=== PATIENT | male | born 1950 | race Caucasian/White ===

== ENCOUNTER → 2021-09-21 | Outpatient (REF) | payer MEDICARE, MEDICAID ==
[2021-09-21 13:11] LABS: HEMATOCRIT 47.4 % (42.0-52.0); HEMOGLOBIN 16.2 g/dl (13.5-17.5); MEAN CORPUSCULAR HEMOGLOBIN 30.9 pg (27.0-33.0); MEAN CORPUSCULAR HGB CONC 34.2 g/dl (32.0-36.5); MEAN CORPUSCULAR VOLUME 90.3 fl (80.0-96.0); PLATELET COUNT, AUTOMATED 239 10^3/uL (150-450); RED BLOOD COUNT 5.25 10^6/uL (4.30-6.10); WHITE BLOOD COUNT 4.9 10^3/uL (4.0-10.0)
[2021-09-21 13:16] LABS: APPEARANCE, URINE CLEAR (CLEAR); BACTERIA, URINE AUTO NEGATIVE (NEGATIVE); BILIRUBIN, URINE AUTO NEGATIVE (NEGATIVE); BLOOD, URINE BLOOD 1+ (NEGATIVE); COLOR, URINE YELLOW (YELLOW); GLUCOSE, URINE (UA) AUTO NEGATIVE (NEGATIVE); KETONE, URINE AUTO NEGATIVE (NEGATIVE); LEUKOCYTE ESTERASE, URINE AUTO NEGATIVE (NEGATIVE); MUCUS, URINE SMALL (NEGATIVE); NITRITE, URINE AUTO NEGATIVE (NEGATIVE); PROTEIN, URINE AUTO NEGATIVE (NEGATIVE); RBC, URINE AUTO 3 /HPF (0-3); SPECIFIC GRAVITY URINE AUTO 1.016 (1.002-1.035); SQUAMOUS EPITHELIAL CELL UR AU 0 /HPF (0-6); UROBILINOGEN, URINE AUTO 0.2 mg/dL (0.0-2.0); WBC, URINE AUTO 5 /HPF (0-3)
[2021-09-21 13:55] LABS: ALBUMIN 4.1 GM/DL (3.2-5.2); ALT/SGPT 26 U/L (12-78); BILIRUBIN,TOTAL 0.6 MG/DL (0.2-1.0); BLOOD UREA NITROGEN 18 MG/DL (7-18); CALCIUM LEVEL 9.6 MG/DL (8.8-10.2); CARBON DIOXIDE LEVEL 31 MEQ/L (21-32); CHLORIDE LEVEL 106 MEQ/L (98-107); CHOLESTEROL LEVEL 223 MG/DL (<200); CHOLESTEROL RISK RATIO 3.484 (<5); CREATININE FOR GFR 0.94 MG/DL (0.70-1.30); FERRITIN 234 NG/ML (26-388); FREE T4 1.13 NG/DL (0.76-1.46); GLOMERULAR FILTRATION RATE > 60.0 (>42); GLUCOSE, FASTING 98 MG/DL (70-100); HDL CHOLESTEROL 64 MG/DL (>40); IRON (FE) 120 UG/DL (65-175); LDL CHOLESTEROL 142 MG/DL (<100); NON-HDL-C 159 MG/DL; POTASSIUM SERUM 4.5 MEQ/L (3.5-5.1); SODIUM LEVEL 140 MEQ/L (136-145); TOTAL PROTEIN 7.5 GM/DL (6.4-8.2); TRIGLYCERIDES LEVEL 86 MG/DL (<150)
== END ==
LOC: M SFHCADAM 08:39
PROVIDERS: ATTEND Physician Assistant
DX: Z12.5 Encounter for screening for malignant neoplasm of prostate (principal); N40.1 Benign prostatic hyperplasia with lower urinary tract symptoms; R35.0 Frequency of micturition; Z13.220 Encounter for screening for lipoid disorders; R53.82 Chronic fatigue, unspecified; G89.29 Other chronic pain; D50.9 Iron deficiency anemia, unspecified; E78.00 Pure hypercholesterolemia, unspecified
CPT/HCPCS: 80053; 80061; 81001; 82728; 83540; 84439; 84443; 85027; 87086; G0103

== ENCOUNTER → 2021-10-05 | Outpatient (CLI) | payer MEDICARE, MEDICAID | LOC: M SOG 11:08 | PROVIDERS: ATTEND Physician Assistant | DX: M79.641 Pain in right hand (principal) ==

== ENCOUNTER → 2021-10-18 | Outpatient (REF) | payer MEDICARE, MEDICAID ==
[2021-10-18 20:11] LABS: APPEARANCE, URINE MANUAL TURBID (CLEAR); COLOR, URINE MANUAL BROWN (YELLOW)
[2021-10-18 20:26] LABS: BILIRUBIN, URINE MANUAL NEGATIVE (NEGATIVE); BLOOD URINE MANUAL POSITIVE (NEGATIVE); GLUCOSE, URINE (UA) MANUAL NEGATIVE (NEGATIVE); KETONE, URINE MANUAL NEGATIVE (NEGATIVE); LEUKOCYTE ESTERASE, URINE MAN TRACE (NEGATIVE); NITRITE, URINE MANUAL NEGATIVE (NEGATIVE); PH,URINE MAN 1.025 UNITS (5.0 - 7.0); PROTEIN, URINE MANUAL 3+ mg/dL (NEGATIVE); UROBILINOGEN, URINE MANUAL NORMAL (NORMAL)
[2021-10-18 20:27] LABS: RBC, URINE TNTC /hpf (0-3); SQUAMOUS EPITHELIAL CELL URINE 0 /hpf (SMALL AMT)
[2021-10-18 20:28] LABS: AMORPHOUS SEDIMENT, URINE SMALL AMOUNT (NEGATIVE); BACTERIA, URINE NONE SEEN; HYALINE CAST, URINE NONE SEEN /lpf (0-1)
== END ==
LOC: M SFHCADAM 15:07
PROVIDERS: ATTEND Urology
DX: R30.0 Dysuria (principal)

== ENCOUNTER → 2021-11-05 | Outpatient (CLI) | payer MEDICARE, MEDICAID ==
[~2021-11-05] MED LIST: ALEV220T22 PO; CELE1CAP9 PO; ZINC10LO4 MT
[2021-11-05 12:26] LABS: HEMATOCRIT 43.2 % (42.0-52.0); HEMOGLOBIN 14.6 g/dl (13.5-17.5); MEAN CORPUSCULAR HEMOGLOBIN 30.9 pg (27.0-33.0); MEAN CORPUSCULAR HGB CONC 33.8 g/dl (32.0-36.5); MEAN CORPUSCULAR VOLUME 91.3 fl (80.0-96.0); PLATELET COUNT, AUTOMATED 222 10^3/uL (150-450); RED BLOOD COUNT 4.73 10^6/uL (4.30-6.10); WHITE BLOOD COUNT 4.9 10^3/uL (4.0-10.0)
[2021-11-05 12:35] LABS: INR 0.9; PROTHROMBIN TIME 12.5 SECONDS (12.7-14.5)
[2021-11-05 12:48] LABS: ALBUMIN 3.8 GM/DL (3.2-5.2); ALT/SGPT 18 U/L (12-78); BILIRUBIN,TOTAL 0.3 MG/DL (0.2-1.0); BLOOD UREA NITROGEN 24 MG/DL (7-18); CALCIUM LEVEL 9.6 MG/DL (8.8-10.2); CARBON DIOXIDE LEVEL 27 MEQ/L (21-32); CHLORIDE LEVEL 108 MEQ/L (98-107); CREATININE FOR GFR 0.88 MG/DL (0.70-1.30); GLOMERULAR FILTRATION RATE > 60.0 (>42); GLUCOSE, FASTING 91 MG/DL (70-100); POTASSIUM SERUM 4.4 MEQ/L (3.5-5.1); SODIUM LEVEL 141 MEQ/L (136-145)
== END ==
LOC: M ADAMS 11:00
PROVIDERS: ATTEND Urology
DX: R39.9 Unspecified symptoms and signs involving the genitourinary system (principal); Z79.01 Long term (current) use of anticoagulants

== ENCOUNTER → 2021-11-10 | Outpatient (REF) | payer MEDICARE, MEDICAID ==
[2021-11-10 13:39] LABS: APPEARANCE, URINE CLEAR (CLEAR); BACTERIA, URINE AUTO NEGATIVE (NEGATIVE); BILIRUBIN, URINE AUTO NEGATIVE (NEGATIVE); BLOOD, URINE BLOOD 1+ (NEGATIVE); COLOR, URINE YELLOW (YELLOW); GLUCOSE, URINE (UA) AUTO NEGATIVE (NEGATIVE); KETONE, URINE AUTO NEGATIVE (NEGATIVE); LEUKOCYTE ESTERASE, URINE AUTO NEGATIVE (NEGATIVE); NITRITE, URINE AUTO NEGATIVE (NEGATIVE); PROTEIN, URINE AUTO NEGATIVE (NEGATIVE); RBC, URINE AUTO 13 /HPF (0-3); SQUAMOUS EPITHELIAL CELL UR AU 0 /HPF (0-6); UROBILINOGEN, URINE AUTO 0.2 mg/dL (0.0-2.0); WBC, URINE AUTO 5 /HPF (0-3)
== END ==
LOC: M SMT 12:38
PROVIDERS: ATTEND Urology
DX: R30.0 Dysuria (principal)

== ENCOUNTER → 2021-11-10 | Outpatient (CLI) | payer MEDICARE, MEDICAID ==
[~2021-11-10] MED LIST changes: +BACT800T5 PO; +HYDR-3713 PO; +OXYB5TAB10 PO; +PYRI1TAB5 PO
== END ==
LOC: M LABSMTC 09:54
PROVIDERS: ATTEND Anesthesiology
DX: Z01.812 Encounter for preprocedural laboratory examination (principal)

== ENCOUNTER → 2021-11-12 | Outpatient (CLI) | payer MEDICARE, MEDICAID | LOC: M ADAMS 07:53 | PROVIDERS: ATTEND Urology | DX: R39.9 Unspecified symptoms and signs involving the genitourinary system (principal) ==

== ENCOUNTER 2021-11-15 09:41 | Day surgery (SDC) | payer MEDICARE, MEDICAID ==
[~2021-11-15] VITALS: Ht 182.9 cm; Wt 86.6 kg
[~2021-11-15 09:41] MED LIST changes: -BACT800T5 PO; +CIPROFLOXACIN 400 MG in IV 1 EA IV ONE; -HYDR-3713 PO; +LIDOCAINE 1% MDV 20ML VIAL SQ PRN; +LR 1,000 ML IV ONE; -OXYB5TAB10 PO; -PYRI1TAB5 PO
[2021-11-15] MEDS ORDERED: MIDAZOLAM INJ 2MG/2ML VIAL (J2250 PER 1MG) As Ordered ONE (10:45)
[2021-11-15] MEDS ORDERED: dexameTHASONE 4 MG/ML 1ML VIAL (J1100 PER 1MG) As Ordered ONE (10:46)
[2021-11-15] MEDS ORDERED: fentaNYL 100 MCG/2 ML INJECTION As Ordered ONE (10:46)
[2021-11-15] MEDS ORDERED: propofoL 200 MG/20 ML VIAL As Ordered ONE (10:46)
[2021-11-15] MEDS ORDERED: ONDANSETRON 4MG/2ML VIAL As Ordered ONE (10:46)
[2021-11-15] MEDS ORDERED: LIDOCAINE 2% 100MG/5ML SDV (FOR ANES.) As Ordered ONE (10:46)
[2021-11-15] MEDS ORDERED: ACETAMINOPHEN 1000MG 100ML IV BTL (OFIRMEV) (J0131 PER 10MG) As Ordered ONE (11:28)
[2021-11-15] MEDS ORDERED: ROCURONIUM BROMIDE 50 MG/5 ML VIAL As Ordered ONE (11:46)
[2021-11-15] MEDS ORDERED: SUGAMMADEX SODIUM 500 MG/5 ML VIAL (BRIDION) As Ordered ONE (12:09)
[2021-11-15] MEDS ORDERED: OXYB5TAB10 PO (12:21)
[2021-11-15] MEDS ORDERED: BACT800T5 PO (12:21)
[2021-11-15] MEDS ORDERED: PYRI1TAB5 PO (12:21)
[2021-11-15] MEDS ORDERED: HYDR-3713 PO (12:21)
[2021-11-15] MEDS ORDERED: LR 1,000 ML IV SCH (12:40)
[2021-11-15] MEDS ORDERED: oxyCODONE 5MG TAB PO PRN (12:40)
[2021-11-15] MEDS ORDERED: fentaNYL 100 MCG/2 ML INJECTION IV PRN (12:40)
[2021-11-15] MEDS ORDERED: ONDANSETRON 4MG/2ML VIAL IV PRN (12:40)
[2021-11-15] MEDS: HYDROMORPHONE HCL 0.5 MG/ 0.5 ML SYRINGE (J1170 PER 1) IV PRN ×2 (12:47→12:52)
[2021-11-15 14:40] VITALS: BP 141/81
== END 2021-11-15 14:49 | disposition home or self-care (01) ==
LOC: M SDC 09:41
PROVIDERS: ATTEND Urology
DX: C67.9 Malignant neoplasm of bladder, unspecified (principal); Z87.891 Personal history of nicotine dependence; M54.50 Low back pain, unspecified
CPT/HCPCS: 52235; 88305; J0131; J0744; J1100; J1170; J2250; J2405; J3010

== ENCOUNTER → 2021-11-18 | Outpatient (CLI) | payer MEDICARE, MEDICAID ==
[~2021-11-18] MED LIST changes: +BACT800T5 PO; -CIPROFLOXACIN 400 MG in IV 1 EA IV ONE; +HYDR-3713 PO; +ISOVUE-370 76% 100ML VIAL As Ordered ONE; -LIDOCAINE 1% MDV 20ML VIAL SQ PRN; -LR 1,000 ML IV ONE; +OXYB5TAB10 PO; +PYRI1TAB5 PO
== END ==
LOC: M RAD 16:45
PROVIDERS: ATTEND Urology
DX: C67.8 Malignant neoplasm of overlapping sites of bladder (principal)
CPT/HCPCS: 74178; Q9967

== ENCOUNTER → 2022-01-05 | Outpatient (CLI) | payer MEDICARE, MEDICAID ==
[~2022-01-05] MED LIST changes: -ISOVUE-370 76% 100ML VIAL As Ordered ONE
[2022-01-05 17:08] LABS: HEMATOCRIT 44.8 % (42.0-52.0); HEMOGLOBIN 15.1 g/dl (13.5-17.5); MEAN CORPUSCULAR HEMOGLOBIN 30.4 pg (27.0-33.0); MEAN CORPUSCULAR HGB CONC 33.7 g/dl (32.0-36.5); MEAN CORPUSCULAR VOLUME 90.3 fl (80.0-96.0); PLATELET COUNT, AUTOMATED 249 10^3/uL (150-450); RED BLOOD COUNT 4.96 10^6/uL (4.30-6.10); WHITE BLOOD COUNT 4.8 10^3/uL (4.0-10.0)
[2022-01-05 17:28] LABS: ALBUMIN 3.7 GM/DL (3.2-5.2); ALT/SGPT 14 U/L (12-78); BILIRUBIN,TOTAL 0.2 MG/DL (0.2-1.0); BLOOD UREA NITROGEN 16 MG/DL (7-18); CALCIUM LEVEL 9.3 MG/DL (8.8-10.2); CARBON DIOXIDE LEVEL 26 MEQ/L (21-32); CHLORIDE LEVEL 105 MEQ/L (98-107); CREATININE FOR GFR 0.89 MG/DL (0.70-1.30); GLOMERULAR FILTRATION RATE > 60.0 (>42); GLUCOSE, FASTING 112 MG/DL (70-100); SODIUM LEVEL 140 MEQ/L (136-145); TOTAL PROTEIN 7.1 GM/DL (6.4-8.2)
[2022-01-05 19:02] LABS: APPEARANCE, URINE CLEAR (CLEAR); BACTERIA, URINE AUTO NEGATIVE (NEGATIVE); BILIRUBIN, URINE AUTO NEGATIVE (NEGATIVE); BLOOD, URINE BLOOD 1+ (NEGATIVE); COLOR, URINE YELLOW (YELLOW); GLUCOSE, URINE (UA) AUTO NEGATIVE (NEGATIVE); KETONE, URINE AUTO NEGATIVE (NEGATIVE); LEUKOCYTE ESTERASE, URINE AUTO TRACE (NEGATIVE); MUCUS, URINE SMALL (NEGATIVE); NITRITE, URINE AUTO NEGATIVE (NEGATIVE); PROTEIN, URINE AUTO NEGATIVE (NEGATIVE); RBC, URINE AUTO 2 /HPF (0-3); SPECIFIC GRAVITY URINE AUTO 1.013 (1.002-1.035); SQUAMOUS EPITHELIAL CELL UR AU 0 /HPF (0-6); UROBILINOGEN, URINE AUTO 0.2 mg/dL (0.0-2.0); WBC, URINE AUTO 6 /HPF (0-3)
== END ==
LOC: M ADAMS 13:12
PROVIDERS: ATTEND Urology
DX: C67.9 Malignant neoplasm of bladder, unspecified (principal); Z79.899 Other long term (current) drug therapy

== ENCOUNTER → 2022-01-25 | Outpatient (REF) | payer MEDICARE, MEDICAID ==
[2022-01-25 12:43] LABS: APPEARANCE, URINE HAZY (CLEAR); BACTERIA, URINE AUTO NEGATIVE (NEGATIVE); BILIRUBIN, URINE AUTO NEGATIVE (NEGATIVE); BLOOD, URINE BLOOD 1+ (NEGATIVE); COLOR, URINE YELLOW (YELLOW); GLUCOSE, URINE (UA) AUTO NEGATIVE (NEGATIVE); KETONE, URINE AUTO TRACE mg/dL (NEGATIVE); LEUKOCYTE ESTERASE, URINE AUTO 1+ (NEGATIVE); MUCUS, URINE SMALL (NEGATIVE); NITRITE, URINE AUTO NEGATIVE (NEGATIVE); PROTEIN, URINE AUTO 1+ mg/dL (NEGATIVE); RBC, URINE AUTO 20 /HPF (0-3); SPECIFIC GRAVITY URINE AUTO 1.023 (1.002-1.035); SQUAMOUS EPITHELIAL CELL UR AU 0 /HPF (0-6); UROBILINOGEN, URINE AUTO 0.2 mg/dL (0.0-2.0); WBC, URINE AUTO 19 /HPF (0-3)
== END ==
LOC: M SFHCADAM 09:27
PROVIDERS: ATTEND Urology
DX: C67.9 Malignant neoplasm of bladder, unspecified (principal)

== ENCOUNTER → 2022-01-31 | Outpatient (REF) | payer MEDICARE, MEDICAID ==
[2022-01-31 13:56] LABS: APPEARANCE, URINE CLEAR (CLEAR); BACTERIA, URINE AUTO 1+ (NEGATIVE); BILIRUBIN, URINE AUTO NEGATIVE (NEGATIVE); BLOOD, URINE BLOOD 1+ (NEGATIVE); COLOR, URINE YELLOW (YELLOW); GLUCOSE, URINE (UA) AUTO NEGATIVE (NEGATIVE); KETONE, URINE AUTO NEGATIVE (NEGATIVE); LEUKOCYTE ESTERASE, URINE AUTO NEGATIVE (NEGATIVE); MUCUS, URINE SMALL (NEGATIVE); NITRITE, URINE AUTO NEGATIVE (NEGATIVE); PROTEIN, URINE AUTO NEGATIVE (NEGATIVE); RBC, URINE AUTO 8 /HPF (0-3); SPECIFIC GRAVITY URINE AUTO 1.019 (1.002-1.035); SQUAMOUS EPITHELIAL CELL UR AU 0 /HPF (0-6); TRANSITIONAL EPITHELIAL AUTO <1 /HPF; UROBILINOGEN, URINE AUTO 0.2 mg/dL (0.0-2.0); WBC, URINE AUTO 10 /HPF (0-3)
== END ==
LOC: M SFHCADAM 08:19
PROVIDERS: ATTEND Urology
DX: C67.9 Malignant neoplasm of bladder, unspecified (principal); Z79.899 Other long term (current) drug therapy

== ENCOUNTER → 2022-02-02 | Outpatient (CLI) | payer MEDICARE, MEDICAID | LOC: M RAD 01-10 08:31 | PROVIDERS: ATTEND Urology | DX: N28.9 Disorder of kidney and ureter, unspecified (principal); R93.429 Abnormal radiologic findings on diagnostic imaging of unspecified kidney ==

== ENCOUNTER → 2022-02-09 | Outpatient (REF) | payer MEDICARE, MEDICAID ==
[2022-02-09 17:30] LABS: APPEARANCE, URINE HAZY (CLEAR); BACTERIA, URINE AUTO NEGATIVE (NEGATIVE); BILIRUBIN, URINE AUTO NEGATIVE (NEGATIVE); BLOOD, URINE BLOOD 3+ (NEGATIVE); COLOR, URINE YELLOW (YELLOW); GLUCOSE, URINE (UA) AUTO NEGATIVE (NEGATIVE); KETONE, URINE AUTO TRACE mg/dL (NEGATIVE); LEUKOCYTE ESTERASE, URINE AUTO TRACE (NEGATIVE); MUCUS, URINE SMALL (NEGATIVE); NITRITE, URINE AUTO NEGATIVE (NEGATIVE); PROTEIN, URINE AUTO 1+ mg/dL (NEGATIVE); RBC, URINE AUTO 88 /HPF (0-3); SPECIFIC GRAVITY URINE AUTO 1.017 (1.002-1.035); SQUAMOUS EPITHELIAL CELL UR AU 0 /HPF (0-6); UROBILINOGEN, URINE AUTO 0.2 mg/dL (0.0-2.0); WBC, URINE AUTO 14 /HPF (0-3)
== END ==
LOC: M SMT 16:35
PROVIDERS: ATTEND Urology
DX: C67.9 Malignant neoplasm of bladder, unspecified (principal)

== ENCOUNTER → 2022-02-14 | Outpatient (REF) | payer MEDICARE, MEDICAID ==
[2022-02-14 13:41] LABS: APPEARANCE, URINE HAZY (CLEAR); BACTERIA, URINE AUTO NEGATIVE (NEGATIVE); BILIRUBIN, URINE AUTO NEGATIVE (NEGATIVE); BLOOD, URINE BLOOD 2+ (NEGATIVE); COLOR, URINE YELLOW (YELLOW); GLUCOSE, URINE (UA) AUTO NEGATIVE (NEGATIVE); KETONE, URINE AUTO TRACE mg/dL (NEGATIVE); LEUKOCYTE ESTERASE, URINE AUTO 1+ (NEGATIVE); MUCUS, URINE SMALL (NEGATIVE); NITRITE, URINE AUTO NEGATIVE (NEGATIVE); PROTEIN, URINE AUTO 1+ mg/dL (NEGATIVE); RBC, URINE AUTO 12 /HPF (0-3); SPECIFIC GRAVITY URINE AUTO 1.018 (1.002-1.035); SQUAMOUS EPITHELIAL CELL UR AU 0 /HPF (0-6); UROBILINOGEN, URINE AUTO 0.2 mg/dL (0.0-2.0); WBC, URINE AUTO 30 /HPF (0-3)
== END ==
LOC: M SFHCADAM 08:55
PROVIDERS: ATTEND Urology
DX: C67.9 Malignant neoplasm of bladder, unspecified (principal)

== ENCOUNTER → 2022-02-21 | Outpatient (REF) | payer MEDICARE, MEDICAID ==
[2022-02-22 13:22] LABS: APPEARANCE, URINE HAZY (CLEAR); BACTERIA, URINE AUTO NEGATIVE (NEGATIVE); BILIRUBIN, URINE AUTO NEGATIVE (NEGATIVE); BLOOD, URINE BLOOD NEGATIVE (NEGATIVE); COLOR, URINE YELLOW (YELLOW); GLUCOSE, URINE (UA) AUTO NEGATIVE (NEGATIVE); KETONE, URINE AUTO NEGATIVE (NEGATIVE); LEUKOCYTE ESTERASE, URINE AUTO 1+ (NEGATIVE); MUCUS, URINE SMALL (NEGATIVE); NITRITE, URINE AUTO NEGATIVE (NEGATIVE); PROTEIN, URINE AUTO NEGATIVE (NEGATIVE); RBC, URINE AUTO 5 /HPF (0-3); SPECIFIC GRAVITY URINE AUTO 1.014 (1.002-1.035); SQUAMOUS EPITHELIAL CELL UR AU 0 /HPF (0-6); UROBILINOGEN, URINE AUTO 0.2 mg/dL (0.0-2.0); WBC, URINE AUTO 21 /HPF (0-3)
== END ==
LOC: M SFHCADAM 10:27
PROVIDERS: ATTEND Urology
DX: C67.9 Malignant neoplasm of bladder, unspecified (principal)

== ENCOUNTER → 2022-03-13 | Outpatient (CLI) | payer MEDICARE, MEDICAID ==
[~2022-03-13] MED LIST changes: +CELE1CAP4 PO
== END ==
LOC: M LABSMTC 11:32
PROVIDERS: ATTEND Anesthesiology
DX: Z01.812 Encounter for preprocedural laboratory examination (principal)

== ENCOUNTER → 2022-03-28 | Outpatient (REF) | payer MEDICARE, MEDICAID ==
[2022-03-28 13:38] LABS: APPEARANCE, URINE MANUAL CLEAR (CLEAR); COLOR, URINE MANUAL YELLOW (YELLOW)
[2022-03-28 13:39] LABS: BILIRUBIN, URINE MANUAL NEGATIVE (NEGATIVE); GLUCOSE, URINE (UA) MANUAL NEGATIVE (NEGATIVE); KETONE, URINE MANUAL NEGATIVE (NEGATIVE); PROTEIN, URINE MANUAL NEGATIVE (NEGATIVE); UROBILINOGEN, URINE MANUAL NORMAL (NORMAL)
[2022-03-28 13:40] LABS: BLOOD URINE MANUAL POSITIVE (NEGATIVE); LEUKOCYTE ESTERASE, URINE MAN NEGATIVE (NEGATIVE); NITRITE, URINE MANUAL NEGATIVE (NEGATIVE)
[2022-03-28 13:54] LABS: RBC, URINE 20-30 /hpf (0-3); SQUAMOUS EPITHELIAL CELL URINE SMALL AMOUNT /hpf (SMALL AMT)
[2022-03-28 13:55] LABS: BACTERIA, URINE SMALL AMOUNT; HYALINE CAST, URINE NONE SEEN /lpf (0-1); MUCUS, URINE LARGE AMOUNT (NEGATIVE)
== END ==
LOC: M SMT 13:01
PROVIDERS: ATTEND Urology
DX: Z85.51 Personal history of malignant neoplasm of bladder (principal)

== ENCOUNTER → 2022-05-17 | Outpatient (CLI) | payer MEDICARE, MEDICAID | LOC: M ADAMS 10:35 | PROVIDERS: ATTEND Physician Assistant | DX: M25.552 Pain in left hip (principal) ==

== ENCOUNTER → 2022-06-06 | Outpatient (REF) | payer MEDICARE, MEDICAID ==
[2022-06-06 18:38] LABS: APPEARANCE, URINE MANUAL CLOUDY (CLEAR); BILIRUBIN, URINE MANUAL NEGATIVE (NEGATIVE); COLOR, URINE MANUAL AMBER (YELLOW); GLUCOSE, URINE (UA) MANUAL NEGATIVE (NEGATIVE); KETONE, URINE MANUAL NEGATIVE (NEGATIVE); PROTEIN, URINE MANUAL 1+ mg/dL (NEGATIVE); SPECIFIC GRAVITY,URINE MANUAL 1.025 (1.002-1.035); UROBILINOGEN, URINE MANUAL NORMAL (NORMAL)
[2022-06-06 18:39] LABS: BLOOD URINE MANUAL POSITIVE (NEGATIVE); LEUKOCYTE ESTERASE, URINE MAN TRACE (NEGATIVE); NITRITE, URINE MANUAL NEGATIVE (NEGATIVE)
[2022-06-06 19:40] LABS: RBC, URINE TNTC /hpf (0-3)
[2022-06-06 19:41] LABS: SQUAMOUS EPITHELIAL CELL URINE SMALL AMOUNT /hpf (SMALL AMT)
[2022-06-06 19:42] LABS: BACTERIA, URINE SMALL AMOUNT; HYALINE CAST, URINE 0-1 /lpf (0-1); MUCUS, URINE MOD AMOUNT (NEGATIVE)
== END ==
LOC: M SMT 17:08
PROVIDERS: ATTEND Physician Assistant
DX: R31.9 Hematuria, unspecified (principal)

== ENCOUNTER → 2022-07-22 | Outpatient (REF) | payer MEDICARE, MEDICAID ==
[2022-07-22 13:34] LABS: HEMOGLOBIN 15.6 g/dl (13.5-17.5); MEAN CORPUSCULAR HEMOGLOBIN 30.3 pg (27.0-33.0); MEAN CORPUSCULAR HGB CONC 33.2 g/dl (32.0-36.5); MEAN CORPUSCULAR VOLUME 91.3 fl (80.0-96.0); PLATELET COUNT, AUTOMATED 241 10^3/uL (150-450); RED BLOOD COUNT 5.15 10^6/uL (4.30-6.10); WHITE BLOOD COUNT 6.6 10^3/uL (4.0-10.0)
[2022-07-22 14:03] LABS: BLOOD UREA NITROGEN 20 MG/DL (9-23); CALCIUM LEVEL 9.6 MG/DL (8.3-10.6); CARBON DIOXIDE LEVEL 27 MMOL/L (20-31); CHLORIDE LEVEL 102 MMOL/L (98-107); CREATININE FOR GFR 0.92 MG/DL (0.70-1.30); GLOMERULAR FILTRATION RATE > 60.0 (>42); GLUCOSE, FASTING 71 MG/DL (74-106); POTASSIUM SERUM 4.6 MMOL/L (3.5-5.1); SODIUM LEVEL 138 MMOL/L (136-145)
[2022-07-22 15:05] LABS: APPEARANCE, URINE MANUAL HAZY (CLEAR); COLOR, URINE MANUAL DK YELLOW (YELLOW)
[2022-07-22 15:07] LABS: BILIRUBIN, URINE MANUAL NEGATIVE (NEGATIVE); BLOOD URINE MANUAL POSITIVE (NEGATIVE); GLUCOSE, URINE (UA) MANUAL NEGATIVE (NEGATIVE); KETONE, URINE MANUAL 1+ mg/dL (NEGATIVE); LEUKOCYTE ESTERASE, URINE MAN POSITIVE (NEGATIVE); NITRITE, URINE MANUAL NEGATIVE (NEGATIVE); PROTEIN, URINE MANUAL 1+ mg/dL (NEGATIVE); UROBILINOGEN, URINE MANUAL NORMAL (NORMAL)
[2022-07-22 15:28] LABS: RBC, URINE TNTC /hpf (0-3); SQUAMOUS EPITHELIAL CELL URINE SMALL AMOUNT /hpf (SMALL AMT); WBC, URINE TNTC /hpf (0-3)
[2022-07-22 15:29] LABS: BACTERIA, URINE SMALL AMOUNT; HYALINE CAST, URINE NONE SEEN /lpf (0-1); MUCUS, URINE LARGE AMOUNT (NEGATIVE)
== END ==
LOC: M SFHCADAM 11:28
PROVIDERS: ATTEND Physician Assistant
DX: Z01.818 Encounter for other preprocedural examination (principal)

== ENCOUNTER → 2022-07-22 | Outpatient (CLI) | payer MEDICARE, MEDICAID ==
[~2022-07-22] MED LIST changes: +BUPR150T12; +LIDO1CRE42 TOP; +MACR100C43 PO; +NICOTINE LOZENGES; +ZINC50TA17 PO
== END ==
LOC: M ADAMS 11:39
PROVIDERS: ATTEND Physician Assistant
DX: Z01.818 Encounter for other preprocedural examination (principal)
CPT/HCPCS: 71046; 80048; 81000; 85027; 87086; G0463

== ENCOUNTER → 2022-07-27 | Outpatient (CLI) | payer MEDICARE, MEDICAID ==
[~2022-07-27] MED LIST changes: -BUPR150T12; -LIDO1CRE42 TOP; -MACR100C43 PO
== END ==
LOC: M LABSMTC 11:18
PROVIDERS: ATTEND Anesthesiology
DX: Z01.818 Encounter for other preprocedural examination (principal)

== ENCOUNTER 2022-08-01 07:47 | Day surgery (SDC) | payer MEDICARE, MEDICAID ==
[~2022-08-01] VITALS: Ht 182.9 cm; Wt 88.5 kg
[~2022-08-01 07:47] MED LIST changes: +ceFAZolin SOD 2 GM in IV 1 EA IV ONE
[2022-08-01] MEDS ORDERED: LR 1,000 ML IV SCH ×2 (08:25→11:10)
[2022-08-01] MEDS ORDERED: BUPR150T12 (08:32)
[2022-08-01] MEDS ORDERED: LIDOCAINE 2% 100MG/5ML SDV (FOR ANES.) As Ordered ONE (09:34)
[2022-08-01] MEDS ORDERED: ONDANSETRON 4MG 2ML VIAL As Ordered ONE (09:34)
[2022-08-01] MEDS ORDERED: propofoL 200 MG/20 ML VIAL As Ordered ONE (09:34)
[2022-08-01] MEDS ORDERED: fentaNYL 100 MCG/2 ML INJECTION As Ordered ONE (09:35)
[2022-08-01] MEDS ORDERED: ROCURONIUM BROMIDE 50MG/5ML VIAL As Ordered ONE (09:36)
[2022-08-01] MEDS ORDERED: SUGAMMADEX SODIUM 500 MG/5 ML VIAL (BRIDION) As Ordered ONE (09:36)
[2022-08-01] MEDS ORDERED: ACETAMINOPHEN 1000MG 100ML IV BAG As Ordered ONE (10:37)
[2022-08-01] MEDS ORDERED: OXYB5TAB10 PO (11:07)
[2022-08-01] MEDS ORDERED: MACR100C43 PO (11:07)
[2022-08-01] MEDS ORDERED: PYRI1TAB5 PO (11:07)
[2022-08-01] MEDS ORDERED: HYDROMORPHONE HCL 0.5 MG/ 0.5 ML SYRINGE IV PRN (11:10)
[2022-08-01] MEDS ORDERED: oxyCODONE 5MG TAB PO PRN (11:10)
[2022-08-01] MEDS ORDERED: fentaNYL 100 MCG/2 ML INJECTION IV PRN (11:10)
[2022-08-01] MEDS ORDERED: ONDANSETRON 4MG 2ML VIAL IV PRN (11:10)
[2022-08-01] MEDS ORDERED: oxyBUTYnin 5 MG TAB PO ONE (12:10)
[2022-08-01 13:45] VITALS: BP 148/82
== END 2022-08-01 13:55 | disposition home or self-care (01) ==
LOC: M SDC 07:47
PROVIDERS: ATTEND Urology
DX: C67.1 Malignant neoplasm of dome of bladder (principal); R31.0 Gross hematuria; N40.2 Nodular prostate without lower urinary tract symptoms; N28.9 Disorder of kidney and ureter, unspecified; E78.5 Hyperlipidemia, unspecified; N40.0 Benign prostatic hyperplasia without lower urinary tract symptoms; M19.90 Unspecified osteoarthritis, unspecified site; Z79.899 Other long term (current) drug therapy; Z79.2 Long term (current) use of antibiotics; F17.290 Nicotine dependence, other tobacco product, uncomplicated
CPT/HCPCS: 52204; 52240; 88305; J1100; J2405

== ENCOUNTER → 2022-08-18 | Outpatient (CLI) | payer MEDICARE, MEDICAID ==
[~2022-08-18] MED LIST changes: +BUPR150T12; +GASTROGRAFIN SOLUTION 30ML As Ordered ONE; +ISOVUE-370 76% 100ML VIAL As Ordered ONE; +MACR100C43 PO; -ceFAZolin SOD 2 GM in IV 1 EA IV ONE
== END ==
LOC: M RAD 07:02
PROVIDERS: ATTEND Physician Assistant
DX: C67.9 Malignant neoplasm of bladder, unspecified (principal)
CPT/HCPCS: 71260; 74178; Q9963; Q9967

== ENCOUNTER → 2022-08-25 | Outpatient (CLI) | payer MEDICARE, MEDICAID ==
[~2022-08-25] MED LIST changes: -GASTROGRAFIN SOLUTION 30ML As Ordered ONE; -ISOVUE-370 76% 100ML VIAL As Ordered ONE
== END ==
LOC: M LABSMTC 09:12
PROVIDERS: ATTEND Anesthesiology
DX: Z01.812 Encounter for preprocedural laboratory examination (principal); Z20.822 Contact with and (suspected) exposure to COVID-19

== ENCOUNTER → 2022-08-29 | Outpatient (CLI) | payer MEDICARE, MEDICAID ==
[~2022-08-29] MED LIST changes: +FLOM0.4C39 PO; +LIDO1CRE42 TOP; +LIDOCAINE 1% MDV 20ML VIAL As Ordered ONE; +MIDAZOLAM INJ 2MG/2ML VIAL As Ordered ONE; +MYRB50TA PO; +NS 1,000 ML IV SCH; +ONDA8TAB8 PO; +OXYB15TA14 PO; +PROC10TA5 PO; +ceFAZolin 2 GM/D5W 50 ML IV BAG As Ordered ONE; +ceFAZolin SOD 2 GM in IV 1 EA IV ONE; +diphenhydrAMINE 50MG/ML VIAL As Ordered ONE; +fentaNYL 100 MCG/2 ML INJECTION As Ordered ONE
[2022-08-29 17:00] VITALS: BP 138/78
== END ==
LOC: M IRPRO 12:49
PROVIDERS: ATTEND Specialist
DX: C67.9 Malignant neoplasm of bladder, unspecified (principal)
CPT/HCPCS: 36561; 99152; 99153; C1769; C1788; C1894; J0690; J1200; J2250; J3010

== ENCOUNTER → 2022-09-13 | Outpatient (POV) | payer MEDICARE, MEDICAID ==
[~2022-09-13] VITALS: Ht 182.9 cm; Wt 85.9 kg
[~2022-09-13] MED LIST changes: -FLOM0.4C39 PO; -LIDOCAINE 1% MDV 20ML VIAL As Ordered ONE; -MIDAZOLAM INJ 2MG/2ML VIAL As Ordered ONE; -MYRB50TA PO; -NS 1,000 ML IV SCH; -ONDA8TAB8 PO; -OXYB15TA14 PO; -PROC10TA5 PO; -ceFAZolin 2 GM/D5W 50 ML IV BAG As Ordered ONE; -ceFAZolin SOD 2 GM in IV 1 EA IV ONE; -diphenhydrAMINE 50MG/ML VIAL As Ordered ONE; -fentaNYL 100 MCG/2 ML INJECTION As Ordered ONE
[2022-09-13 09:45] VITALS: BP 131/80
== END ==
LOC: M IRPOV 09:30
PROVIDERS: ATTEND Radiology Diagnostic Radiology
DX: Z45.2 Encounter for adjustment and management of vascular access device (principal); Z91.09 Other allergy status, other than to drugs and biological substances

== ENCOUNTER → 2022-09-13 | Outpatient (CLI) | payer MEDICARE, MEDICAID | LOC: M ONCR 13:14 | PROVIDERS: ATTEND General Practice | DX: C67.8 Malignant neoplasm of overlapping sites of bladder (principal); M19.90 Unspecified osteoarthritis, unspecified site; Z87.891 Personal history of nicotine dependence; Z91.048 Other nonmedicinal substance allergy status; Z79.899 Other long term (current) drug therapy ==

== ENCOUNTER → 2022-09-21 | Outpatient (REF) | payer MEDICARE, MEDICAID ==
[~2022-09-21] MED LIST changes: +FLOM0.4C39 PO; +ONDA8TAB8 PO; +PROC10TA5 PO
[2022-09-21 18:08] LABS: CHOLESTEROL RISK RATIO 4.32 (<5); HDL CHOLESTEROL 48.6 MG/DL (>40); LDL CHOLESTEROL 120.2 MG/DL (<100); NON-HDL-C 161.4 MG/DL
[2022-09-21 18:10] LABS: FREE T4 1.09 NG/DL (0.89-1.76); THYROID STIMULATING HORMONE 1.82 uIU/ML (0.55-4.78)
== END ==
LOC: M SFHCADAM 11:56
PROVIDERS: ATTEND Physician Assistant
DX: N40.1 Benign prostatic hyperplasia with lower urinary tract symptoms (principal); M25.552 Pain in left hip; F17.290 Nicotine dependence, other tobacco product, uncomplicated; E78.00 Pure hypercholesterolemia, unspecified; G89.29 Other chronic pain; Z12.5 Encounter for screening for malignant neoplasm of prostate

== ENCOUNTER → 2022-10-14 | Outpatient (RCR) | payer MEDICARE, MEDICAID | LOC: M ONCR 09-20 13:33 | PROVIDERS: ATTEND General Practice | DX: C67.8 Malignant neoplasm of overlapping sites of bladder (principal) ==

== ENCOUNTER 2022-11-11 08:10 | Outpatient (RCR) | payer MEDICARE, MEDICAID ==
[~2022-11-11 08:10] MED LIST changes: +CIPR750T2 PO; +LIDOCAINE 2% 5ML JELLY UROJET TOP ONE; +MYRB50TA PO; +OXYB15TA14 PO; +OXYC-517 PO
[2022-11-14] MEDS ORDERED: MORP15TASA PO (10:18)
[2022-11-14] MEDS ORDERED: FINA5TAB2 PO (10:25)
== END 2022-11-13 ==
LOC: M ONCR 08:10
PROVIDERS: ATTEND General Practice
DX: C67.8 Malignant neoplasm of overlapping sites of bladder (principal)

== ENCOUNTER 2022-11-16 07:38 | Outpatient (RCR) | payer MEDICARE, MEDICAID ==
[~2022-11-16 07:38] MED LIST changes: +FINA5TAB2 PO; -LIDOCAINE 2% 5ML JELLY UROJET TOP ONE; +MORP15TASA PO
[2022-11-22] MEDS ORDERED: OXYC-517 PO (10:39)
[2022-11-22] MEDS ORDERED: TAMS1CAP17 (14:35)
[2022-11-22] MEDS ORDERED: MAGN100T PO (14:35)
[2022-11-22] MEDS ORDERED: PYRI1TAB5 PO (15:21)
[2022-11-30] MEDS ORDERED: OXYC-517 PO (09:22)
[2022-12-09] MEDS ORDERED: OXYC-517 PO (15:48)
[2022-12-09] MEDS ORDERED: TAMS1CAP17 PO (15:48)
== END 2022-12-14 ==
LOC: M ONCR 07:38
PROVIDERS: ATTEND General Practice
DX: C67.8 Malignant neoplasm of overlapping sites of bladder (principal)

== ENCOUNTER → 2022-11-30 | Outpatient (CLI) | payer MEDICARE, MEDICAID ==
[~2022-11-30] MED LIST changes: +MAGN100T PO; +TAMS1CAP17; +TAMS1CAP17 PO
== END ==
LOC: M ONCR 08:33
PROVIDERS: ATTEND General Practice
DX: C67.8 Malignant neoplasm of overlapping sites of bladder (principal); Z92.3 Personal history of irradiation; Z92.21 Personal history of antineoplastic chemotherapy; Z79.891 Long term (current) use of opiate analgesic; Z87.891 Personal history of nicotine dependence; Z91.048 Other nonmedicinal substance allergy status; Z79.899 Other long term (current) drug therapy

== ENCOUNTER → 2022-12-14 | Outpatient (CLI) | payer MEDICARE, MEDICAID ==
[~2022-12-14] MED LIST changes: +[UNRECOGNIZED DRUG - CODE] PO
== END ==
LOC: M ONCR 08:37
PROVIDERS: ATTEND General Practice
DX: C67.8 Malignant neoplasm of overlapping sites of bladder (principal); N32.89 Other specified disorders of bladder; R35.0 Frequency of micturition; R35.1 Nocturia; Z92.21 Personal history of antineoplastic chemotherapy; Z92.3 Personal history of irradiation

== ENCOUNTER → 2023-03-02 | Outpatient (CLI) | payer MEDICARE, MEDICAID ==
[~2023-03-02] MED LIST changes: +B-12100010 PO; +GASTROGRAFIN SOLUTION 30ML As Ordered ONE; +ISOVUE-370 76% 100ML VIAL As Ordered ONE; -LIDO1CRE42 TOP; +LIDO30CR18 TOP; +VITA100093 PO
== END ==
LOC: M RAD 09:07
PROVIDERS: ATTEND General Practice
DX: C67.8 Malignant neoplasm of overlapping sites of bladder (principal)
CPT/HCPCS: 74177; Q9963; Q9967

== ENCOUNTER → 2023-03-03 | Outpatient (CLI) | payer MEDICARE, MEDICAID ==
[~2023-03-03] MED LIST changes: -GASTROGRAFIN SOLUTION 30ML As Ordered ONE; -ISOVUE-370 76% 100ML VIAL As Ordered ONE
== END ==
LOC: M ONCR 12:40
PROVIDERS: ATTEND Radiology Radiation Oncology
DX: C67.8 Malignant neoplasm of overlapping sites of bladder (principal); N40.0 Benign prostatic hyperplasia without lower urinary tract symptoms; Z71.2 Person consulting for explanation of examination or test findings; Z79.899 Other long term (current) drug therapy; Z87.891 Personal history of nicotine dependence; Z92.21 Personal history of antineoplastic chemotherapy; Z92.3 Personal history of irradiation

== ENCOUNTER → 2023-03-30 | Outpatient (CLI) | payer MEDICARE, MEDICAID ==
[~2023-03-30] MED LIST changes: +CELE0.09 PO; -CELE1CAP9 PO
== END ==
LOC: M ADAMS 15:26
PROVIDERS: ATTEND Physician Assistant Medical
DX: M51.36 Other intervertebral disc degeneration, lumbar region (principal); M16.12 Unilateral primary osteoarthritis, left hip

== ENCOUNTER → 2023-05-16 | Outpatient (CLI) | payer MEDICARE, MEDICAID ==
[~2023-05-16] MED LIST changes: +ISOVUE-370 76% 100ML VIAL As Ordered ONE; -OXYB5TAB10 PO; +OXYB5TAB11 PO
== END ==
LOC: M RAD 12:31
PROVIDERS: ATTEND Physician Assistant
DX: R93.89 Abnormal findings on diagnostic imaging of other specified body structures (principal)
CPT/HCPCS: 71260; Q9967

== ENCOUNTER → 2023-06-20 | Outpatient (CLI) | payer MEDICARE, MEDICAID ==
[~2023-06-20] MED LIST changes: -ISOVUE-370 76% 100ML VIAL As Ordered ONE
== END ==
LOC: M ONCR 08:36
PROVIDERS: ATTEND General Practice
DX: C67.8 Malignant neoplasm of overlapping sites of bladder (principal); R35.1 Nocturia; Z71.2 Person consulting for explanation of examination or test findings; Z79.1 Long term (current) use of non-steroidal anti-inflammatories (NSAID); Z79.899 Other long term (current) drug therapy; Z87.891 Personal history of nicotine dependence; Z92.21 Personal history of antineoplastic chemotherapy; Z92.3 Personal history of irradiation; Z91.048 Other nonmedicinal substance allergy status

== ENCOUNTER → 2023-12-15 | Outpatient (CLI) | payer MEDICARE, MEDICAID ==
[~2023-12-15] MED LIST changes: +GASTROGRAFIN SOLUTION 30ML As Ordered ONE; +IBUP80TA; +ISOVUE-370 76% 100ML VIAL As Ordered ONE; -OXYB5TAB11 PO; +OXYB5TAB14 PO
== END ==
LOC: M RAD 10:54
PROVIDERS: ATTEND General Practice
DX: C67.8 Malignant neoplasm of overlapping sites of bladder (principal)
CPT/HCPCS: 71260; 74177; Q9963; Q9967

== ENCOUNTER → 2023-12-22 | Outpatient (CLI) | payer MEDICARE, MEDICAID ==
[~2023-12-22] MED LIST changes: -GASTROGRAFIN SOLUTION 30ML As Ordered ONE; -ISOVUE-370 76% 100ML VIAL As Ordered ONE; +ONDA-284 PO; -ONDA8TAB8 PO
== END ==
LOC: M ONCR 11:32
PROVIDERS: ATTEND General Practice
DX: C67.8 Malignant neoplasm of overlapping sites of bladder (principal); N40.1 Benign prostatic hyperplasia with lower urinary tract symptoms; R39.12 Poor urinary stream; Z71.2 Person consulting for explanation of examination or test findings; Z87.891 Personal history of nicotine dependence; Z88.1 Allergy status to other antibiotic agents; Z91.048 Other nonmedicinal substance allergy status; Z92.21 Personal history of antineoplastic chemotherapy; Z92.3 Personal history of irradiation

== ENCOUNTER → 2023-12-26 | Outpatient (CLI) | payer MEDICARE, MEDICAID | LOC: M PLARAD 11:56 | PROVIDERS: ATTEND General Practice | DX: C67.8 Malignant neoplasm of overlapping sites of bladder (principal) | CPT/HCPCS: 78815; A9552 ==

== ENCOUNTER 2024-02-28 08:43 | Day surgery (SDC) | payer MEDICARE, MEDICAID ==
[~2024-02-28] VITALS: Ht 182.9 cm; Wt 90.3 kg
[2024-02-28] MEDS ORDERED: propofoL 200 MG/20 ML VIAL As Ordered ONE (08:58)
[2024-02-28] MEDS ORDERED: SUGAMMADEX SODIUM 500 MG/5 ML VIAL (BRIDION) As Ordered ONE (08:58)
[2024-02-28] MEDS ORDERED: ONDANSETRON 4MG 2ML VIAL As Ordered ONE (08:58)
[2024-02-28] MEDS ORDERED: fentaNYL 100 MCG/2 ML INJECTION As Ordered ONE (08:58)
[2024-02-28] MEDS ORDERED: LIDOCAINE 2% 100MG/5ML SDV (FOR ANES.) As Ordered ONE (08:59)
[2024-02-28] MEDS ORDERED: ROCURONIUM BROMIDE 50MG/5ML VIAL As Ordered ONE (08:59)
[2024-02-28] MEDS ORDERED: LR 1,000 ML IV SCH ×2 (09:10→09:55)
[2024-02-28] MEDS: CETACAINE SPRAY 5GM As Ordered ONE (09:25)
[2024-02-28] MEDS: EPINEPHrine 1MG/10ML SYRINGE 1.5IN As Ordered ONE (09:54)
[2024-02-28] MEDS: THROMBIN 5,000 UNITS VIAL As Ordered ONE (09:54)
[2024-02-28] MEDS ORDERED: oxyCODONE 5MG TAB PO PRN (09:55)
[2024-02-28] MEDS ORDERED: ONDANSETRON 4MG 2ML VIAL IV PRN (09:55)
[2024-02-28] MEDS ORDERED: fentaNYL 100 MCG/2 ML INJECTION IV PRN (09:55)
[2024-02-28] MEDS ORDERED: HYDROMORPHONE HCL 0.5 MG/ 0.5 ML SYRINGE IV PRN (09:55)
[2024-02-28 11:04] VITALS: BP 146/86
[2024-02-28 11:36] VITALS: TEMP 97.8; O2SAT 98
[2024-04-08] MEDS ORDERED: TEST10GE TOP (08:29)
== END 2024-02-28 11:39 | disposition home or self-care (01) ==
LOC: M SDC 08:43
PROVIDERS: ATTEND Internal Medicine Pulmonary Disease
DX: R59.0 Localized enlarged lymph nodes (principal); N40.0 Benign prostatic hyperplasia without lower urinary tract symptoms; Z85.51 Personal history of malignant neoplasm of bladder; Z79.899 Other long term (current) drug therapy; Z92.3 Personal history of irradiation; Z92.21 Personal history of antineoplastic chemotherapy; Z87.891 Personal history of nicotine dependence
CPT/HCPCS: 31652; 71045; 88173; 88305; J2405; J3010

== ENCOUNTER → 2024-04-05 | Outpatient (CLI) | payer MEDICARE, MEDICAID ==
[~2024-04-05] MED LIST changes: +TEST10GE TOP
[2024-04-05 12:17] LABS: PROSTATIC SPECIFIC AG MONITOR 0.33 NG/ML (< 4.00)
== END ==
LOC: M LAB 09:07
PROVIDERS: ATTEND General Practice
DX: C61 Malignant neoplasm of prostate (principal)
CPT/HCPCS: 36415; 84153; 84403; G0463

== ENCOUNTER → 2024-04-05 | Outpatient (CLI) | payer MEDICARE, MEDICAID | LOC: M ONCR 08:25 | PROVIDERS: ATTEND General Practice | DX: C67.8 Malignant neoplasm of overlapping sites of bladder (principal); R39.12 Poor urinary stream; R35.1 Nocturia; R53.83 Other fatigue; Z87.891 Personal history of nicotine dependence; Z92.21 Personal history of antineoplastic chemotherapy; Z92.3 Personal history of irradiation; Z91.048 Other nonmedicinal substance allergy status; Z79.899 Other long term (current) drug therapy ==

== ENCOUNTER 2024-05-29 07:34 | Day surgery (SDC) | payer MEDICARE, MEDICAID ==
[~2024-05-29] VITALS: Ht 185.4 cm; Wt 92.5 kg
[~2024-05-29 07:34] MED LIST changes: +PHENYLEPHRINE 10% OPHTH SOL 5ML OD PRN
[2024-05-29] MEDS ORDERED: MIDAZOLAM INJ 2MG/2ML VIAL As Ordered ONE (07:44)
[2024-05-29] MEDS ORDERED: fentaNYL 100 MCG/2 ML INJECTION As Ordered ONE (07:44)
[2024-05-29] MEDS: TROPICAMIDE 1% OPHTH SOLN 15ML OD SCH (08:05)
[2024-05-29] MEDS: PHENYLEPHRINE 2.5% OPHTH SOL 2ML OD SCH (08:05)
[2024-05-29] MEDS: OFLOXACIN 0.3 % (OCUFLOX) OPTH SOL 5ML OD ONE (08:05)
[2024-05-29] MEDS: LIDOCAINE 3.5 % 1ML OPHTH TOPICAL GEL OU ONE (08:06)
[2024-05-29] MEDS: ATROPINE SULFATE 1% OPHTH SOLN 2ML BTL OD SCH (08:06)
[2024-05-29] MEDS: CEFUROXIME 1MG/0.1ML INTRACAMERAL INJ As Ordered ONE (09:53)
[2024-05-29] MEDS: LIDOCAINE 1% SDV 5ML VIAL As Ordered ONE (09:53)
[2024-05-29] MEDS: BSS IRRIG/VANCO(10MG)/TOBRA(5MG)/EPINEPH(1:1000-0.5CC)500ML BAG-ORONLY As Ordered ONE (09:53)
[2024-05-29 10:08] VITALS: BP 126/77; TEMP 97; O2SAT 94
== END 2024-05-29 10:22 | disposition home or self-care (01) ==
LOC: M SDC 07:34
PROVIDERS: ATTEND Ophthalmology
DX: H25.9 Unspecified age-related cataract (principal); Z79.899 Other long term (current) drug therapy; Z87.891 Personal history of nicotine dependence
CPT/HCPCS: 66984; J0697; J2250; J3010; V2632

== ENCOUNTER 2024-07-03 07:02 | Day surgery (SDC) | payer MEDICARE, MEDICAID ==
[~2024-07-03] VITALS: Ht 182.9 cm; Wt 92.4 kg
[~2024-07-03 07:02] MED LIST changes: +ACET32TAB PO; +MIDAZOLAM INJ 2MG/2ML VIAL As Ordered ONE; -PHENYLEPHRINE 10% OPHTH SOL 5ML OD PRN; +PHENYLEPHRINE 10% OPHTH SOL 5ML OS PRN; +fentaNYL 100 MCG/2 ML INJECTION As Ordered ONE
[2024-07-03] MEDS: TROPICAMIDE 1% OPHTH SOLN 15ML OS SCH (07:49)
[2024-07-03] MEDS: PHENYLEPHRINE 2.5% OPHTH SOL 2ML OS SCH (07:49)
[2024-07-03] MEDS: OFLOXACIN 0.3 % (OCUFLOX) OPTH SOL 5ML OS ONE (07:49)
[2024-07-03] MEDS: LIDOCAINE 3.5 % 1ML OPHTH TOPICAL GEL OU ONE (07:49)
[2024-07-03] MEDS: CYCLOPENTOLATE 1% OPHTH SOLN 2ML BTL OS SCH (07:49)
[2024-07-03] MEDS: CEFUROXIME 1MG/0.1ML INTRACAMERAL INJ As Ordered ONE (08:56)
[2024-07-03] MEDS: LIDOCAINE 1% SDV 5ML VIAL As Ordered ONE (08:56)
[2024-07-03] MEDS: BSS IRRIG/VANCO(10MG)/TOBRA(5MG)/EPINEPH(1:1000-0.5CC)500ML BAG-ORONLY As Ordered ONE (08:56)
[2024-07-03 09:07] VITALS: BP 115/65; TEMP 97.3; O2SAT 98
== END 2024-07-03 09:26 | disposition home or self-care (01) ==
LOC: M SDC 07:02
PROVIDERS: ATTEND Ophthalmology
DX: H25.9 Unspecified age-related cataract (principal); N40.0 Benign prostatic hyperplasia without lower urinary tract symptoms; Z79.899 Other long term (current) drug therapy; Z85.51 Personal history of malignant neoplasm of bladder; Z92.21 Personal history of antineoplastic chemotherapy; Z92.3 Personal history of irradiation
CPT/HCPCS: 66984; J0697; J2250; J3010; V2632

== ENCOUNTER → 2024-08-23 | Outpatient (CLI) | payer MEDICARE, MEDICAID ==
[~2024-08-23] MED LIST changes: +ISOVUE-370 76% 100ML VIAL As Ordered ONE; -MIDAZOLAM INJ 2MG/2ML VIAL As Ordered ONE; -PHENYLEPHRINE 10% OPHTH SOL 5ML OS PRN; -fentaNYL 100 MCG/2 ML INJECTION As Ordered ONE
== END ==
LOC: M RAD 14:27
PROVIDERS: ATTEND Internal Medicine Pulmonary Disease
DX: R91.8 Other nonspecific abnormal finding of lung field (principal)
CPT/HCPCS: 71260; Q9967

== ENCOUNTER 2024-09-04 16:21 | Emergency (ER) | payer MEDICARE, MEDICAID ==
[~2024-09-04] VITALS: Ht 182.9 cm; Wt 95.2 kg
[~2024-09-04 16:21] MED LIST changes: -ELIQ5TAB PO; -PROT1TAB2 PO; -TEST10GE
[2024-09-04 16:59] VITALS: BP 125/74; TEMP 97.5; O2SAT 96
[2024-09-05] MEDS ORDERED: TEST10GE (14:17)
[2024-09-05] MEDS ORDERED: ELIQ5TAB PO (17:55)
[2024-09-05] MEDS ORDERED: PROT1TAB2 PO (17:55)
== END 2024-09-04 18:29 | disposition left against medical advice (07) ==
LOC: M ED 16:21
DX: Z53.21 Procedure and treatment not carried out due to patient leaving prior to being seen by health care provider (principal)

== ENCOUNTER → 2024-09-04 | Outpatient (CLI) | payer MEDICARE, MEDICAID ==
[~2024-09-04] MED LIST changes: +ELIQ5TAB PO; -ISOVUE-370 76% 100ML VIAL As Ordered ONE; +PROT1TAB2 PO; +TEST10GE
== END ==
LOC: M RAD 15:22
PROVIDERS: ATTEND Emergency Medicine
DX: R22.40 Localized swelling, mass and lump, unspecified lower limb (principal)

== ENCOUNTER 2024-09-05 14:09 | Emergency (ER) | payer MEDICARE, MEDICAID ==
[~2024-09-05] VITALS: Ht 182.9 cm; Wt 94.2 kg
[2024-09-05] MEDS ORDERED: TEST10GE (14:17)
[2024-09-05] MEDS ORDERED: ISOVUE-370 76% 100ML VIAL As Ordered ONE (17:13)
[2024-09-05] MEDS ORDERED: PROT1TAB2 PO (17:55)
[2024-09-05] MEDS ORDERED: ELIQ5TAB PO (17:55)
[2024-09-05] MEDS: PANTOPRAZOLE 40MG TAB (PROTONIX) PO ONE (18:02)
[2024-09-05] MEDS: APIXABAN 5 MG TAB (ELIQUIS) PO ONE (18:03)
[2024-09-05 18:14] VITALS: BP 141/81; TEMP 97.6; O2SAT 97
== END 2024-09-05 18:22 | disposition home or self-care (01) ==
LOC: M ED 14:09
DX: I82.401 Acute embolism and thrombosis of unspecified deep veins of right lower extremity (principal); C67.9 Malignant neoplasm of bladder, unspecified; N40.0 Benign prostatic hyperplasia without lower urinary tract symptoms; Z88.8 Allergy status to other drugs, medicaments and biological substances; Z79.01 Long term (current) use of anticoagulants; Z79.899 Other long term (current) drug therapy
CPT/HCPCS: 36415; 71275; 80047; 99284; Q9967

== ENCOUNTER → 2024-09-26 | Outpatient (CLI) | payer MEDICARE, MEDICAID ==
[~2024-09-26] MED LIST changes: +ELIQ5TAB PO; +ISOVUE-370 76% 100ML VIAL As Ordered ONE; +PROT1TAB2 PO; +TEST10GE
== END ==
LOC: M RAD 08:46
PROVIDERS: ATTEND General Practice
DX: C67.9 Malignant neoplasm of bladder, unspecified (principal)
CPT/HCPCS: 71260; 74177; Q9967

== ENCOUNTER → 2024-10-03 | Outpatient (CLI) | payer MEDICARE, MEDICAID ==
[~2024-10-03] MED LIST changes: -ISOVUE-370 76% 100ML VIAL As Ordered ONE
== END ==
LOC: M ONCR 08:31
PROVIDERS: ATTEND General Practice
DX: C67.8 Malignant neoplasm of overlapping sites of bladder (principal); N40.1 Benign prostatic hyperplasia with lower urinary tract symptoms; N28.89 Other specified disorders of kidney and ureter; R35.0 Frequency of micturition; R39.12 Poor urinary stream; Z87.891 Personal history of nicotine dependence; Z92.21 Personal history of antineoplastic chemotherapy; Z92.3 Personal history of irradiation; Z91.048 Other nonmedicinal substance allergy status; Z79.01 Long term (current) use of anticoagulants; Z79.899 Other long term (current) drug therapy; Z79.890 Hormone replacement therapy; Z79.1 Long term (current) use of non-steroidal anti-inflammatories (NSAID)

== ENCOUNTER → 2024-10-11 | Outpatient (CLI) | payer MEDICARE, MEDICAID ==
[~2024-10-11] MED LIST changes: +ISOVUE-370 76% 100ML VIAL As Ordered ONE
[2024-10-11 15:16] LABS: BASO % 0.5 % (0.0-1.0); EOS # 0.1 10^3/uL (0.0-0.5); EOS % 0.9 % (0.0-3.0); HEMATOCRIT 42.5 % (42.0-52.0); HEMOGLOBIN 13.9 g/dl (13.5-17.5); LYMPH # 0.9 10^3/uL (1.5-5.0); LYMPH % 16.6 % (24.0-44.0); MEAN CORPUSCULAR HEMOGLOBIN 30.5 pg (27.0-33.0); MEAN CORPUSCULAR HGB CONC 32.7 g/dl (32.0-36.5); MEAN CORPUSCULAR VOLUME 93.2 fl (80.0-96.0); MONO # 0.5 10^3/uL (0.0-0.8); MONO % 9.3 % (2.0-8.0); NEUTROPHILS % 72.2 % (36.0-66.0); PLATELET COUNT, AUTOMATED 267 10^3/uL (150-450); RED BLOOD COUNT 4.56 10^6/uL (4.30-6.10); WHITE BLOOD COUNT 5.6 10^3/uL (4.0-10.0)
[2024-10-11 15:30] LABS: BLOOD UREA NITROGEN 24 MG/DL (9-23); CALCIUM LEVEL 9.1 MG/DL (8.3-10.6); CARBON DIOXIDE LEVEL 26 MMOL/L (20-31); CHLORIDE LEVEL 101 MMOL/L (98-107); CREATININE FOR GFR 1.21 MG/DL (0.70-1.30); GLOMERULAR FILTRATION RATE > 60.0 (>42); GLUCOSE, FASTING 137 MG/DL (74-106); POTASSIUM SERUM 4.2 MMOL/L (3.5-5.1); SODIUM LEVEL 137 MMOL/L (136-145)
== END ==
LOC: M LAB 13:56 → M RAD 13:56
PROVIDERS: ATTEND Emergency Medicine
DX: M25.551 Pain in right hip (principal); R10.30 Lower abdominal pain, unspecified
CPT/HCPCS: 36415; 74177; 80048; 85025; Q9967

== ENCOUNTER → 2024-11-20 | Outpatient (CLI) | payer MEDICARE, MEDICAID ==
[~2024-11-20] VITALS: Ht 182.9 cm; Wt 94.5 kg
[~2024-11-20] MED LIST changes: -FLOM0.4C39 PO; -ISOVUE-370 76% 100ML VIAL As Ordered ONE; +MORP-138 PO; -MORP15TASA PO; +OXYC-1 PO; +PERCOCET PO; +PRED5TA; +TAMS-18 PO
[2024-11-20 08:36] VITALS: BP 140/90; O2SAT 95
== END ==
LOC: M PAL 07:49
PROVIDERS: ATTEND Physician Assistant
DX: Z51.5 Encounter for palliative care (principal); C67.9 Malignant neoplasm of bladder, unspecified; R52 Pain, unspecified; Z79.899 Other long term (current) drug therapy; Z79.891 Long term (current) use of opiate analgesic; Z91.048 Other nonmedicinal substance allergy status

== ENCOUNTER → 2024-11-26 | Outpatient (CLI) | payer MEDICARE, MEDICAID ==
[~2024-11-26] MED LIST changes: +OXYC10TA12 PO
== END ==
LOC: M ONCM 15:09
PROVIDERS: ATTEND Dietitian, Registered
DX: C67.9 Malignant neoplasm of bladder, unspecified (principal); Z71.3 Dietary counseling and surveillance; Z68.27 Body mass index [BMI] 27.0-27.9, adult

== ENCOUNTER → 2024-12-04 | Outpatient (CLI) | payer MEDICARE, MEDICAID ==
[~2024-12-04] MED LIST changes: +ONDA-84 PO; +TRAZ-252 PO
== END ==
LOC: M PAL 13:10
PROVIDERS: ATTEND Physician Assistant
DX: Z51.5 Encounter for palliative care (principal); C67.9 Malignant neoplasm of bladder, unspecified; Z79.891 Long term (current) use of opiate analgesic; Z91.048 Other nonmedicinal substance allergy status; Z79.899 Other long term (current) drug therapy

== ENCOUNTER → 2025-02-24 | Outpatient (CLI) | payer MEDICARE, MEDICAID ==
[~2025-02-24] MED LIST changes: +ALPR0.5T3 PO; +DULO30CA9 PO; +LACT20EL PO; +MAGO400T2 PO; +POTA-298 PO; +T E MIS MC
== END ==
LOC: M PLAIMG 12:14
PROVIDERS: ATTEND Internal Medicine Pulmonary Disease
DX: R91.8 Other nonspecific abnormal finding of lung field (principal); I25.10 Atherosclerotic heart disease of native coronary artery without angina pectoris; N20.0 Calculus of kidney

== ENCOUNTER → 2025-07-09 | Outpatient (CLI) | payer MEDICARE, MEDICAID ==
[~2025-07-09] MED LIST changes: +FINA5TAB2
== END ==
LOC: M PAL 10:35
PROVIDERS: ATTEND Physician Assistant
DX: Z51.5 Encounter for palliative care (principal); Z79.891 Long term (current) use of opiate analgesic; Z91.048 Other nonmedicinal substance allergy status; Z79.83 Long term (current) use of bisphosphonates